=== PATIENT | female | born 1965 | race Caucasian/White ===

== ENCOUNTER 2016-06-27 10:46 | Emergency (ER) | payer OTHER ==
[~2016-06-27 10:46] MED LIST: DICLOFENAC PO; FLEXERIL PO; FLEXERIL10 MG PO; HYDROCODONE-APA1 T44; KETOPROFEN PO; LISINOPRIL PO; MEDROL PO; NAPROSYN500 MG PO; NO MEDICATIONS; ULTRAM PO
== END 2016-06-27 11:00 | disposition left against medical advice (07) ==
LOC: CED 10:46
DX: T40.1X1A Poisoning by heroin, accidental (unintentional), initial encounter (principal); F17.210 Nicotine dependence, cigarettes, uncomplicated; Y92.9 Unspecified place or not applicable
CPT/HCPCS: 96374; 99283; J2310